=== PATIENT | male | born 1975 | race Caucasian/White ===

== ENCOUNTER 2019-06-02 22:32 | Emergency (ER) | payer SELFPAY ==
[2019-06-02] MEDS ORDERED: DIPH,PERTUSS(ACELL),TET VAC/PF 0.5 ML DISP.SYRIN IM ONE (22:41)
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
[2019-06-02 23:10] VITALS: BP 118/67
== END 2019-06-02 23:10 | disposition short-term general hospital (02) ==
LOC: ED 22:32
DX: S68.123A Partial traumatic metacarpophalangeal amputation of left middle finger, initial encounter (principal); W34.00XA Accidental discharge from unspecified firearms or gun, initial encounter; Y92.009 Unspecified place in unspecified non-institutional (private) residence as the place of occurrence of the external cause; Y93.89 Activity, other specified
CPT/HCPCS: 73140; 99283; 99284